=== PATIENT | female | born 1990 | race African-American/Black ===

== ENCOUNTER 2017-02-12 10:26 | Emergency (ER) | payer OTHER ==
[~2017-02-12] VITALS: Ht 165.1 cm; Wt 77.1 kg
[~2017-02-12 10:26] MED LIST: AMOXICILLIN500 MG PO; VICODIN 5-5001 EACH PO
[2017-02-12 11:00] VITALS: BP 132/82
[2017-02-12] MEDS ORDERED: Albuterol ud Inhalation HHN ONE (12:00)
[2017-02-12] MEDS ORDERED: Ipratropium 0.02% Inh Soln 2.5ml UD HHN ONE (12:00)
[2017-02-12] MEDS ORDERED: ADVAIR 250-501 EACH INH (12:45)
[2017-02-12] MEDS ORDERED: PREDNISONE20 MG ORAL (12:45)
[2017-02-12] MEDS ORDERED: PROAIR HFA8.5 GM INH (12:45)
[2017-02-12 12:52] VITALS: BP 131/81
--- NOTE | 2017-02-12 14:05 | Diagnostic Imaging Report ---
Indication: Cough Technique: One view of the chest Comparison: Findings: Lungs and pleural spaces are clear. Heart size is normal Impression: No acute process
--- NOTE | 2017-02-12 20:47 | Emergency Room Report ---
History of Present Illness General Chief Complaint: Upper Respiratory Illness Source: Patient (ADAN CARRANZA) Present Illness HPI The patient is a 26-year-old female with a history of asthma presenting for intermittent cough for the past month. She states that this does feel like asthma. She has used albuterol which temporarily helps. She denies any known sick contacts or recent travel. She denies any fever or chills. She denies any other symptoms (ADAN CARRANZA) Allergies: Coded Allergies: No Known Allergies (Unverified , 02/12/17) Patient History Past Medical History: see triage record Pertinent Family History: none Last Menstrual Period: 01/09/17 : 3 Para: 0 Reviewed Nursing Documentation: PMH: Agreed, PSxH: Agreed (ADAN CARRANZA) Nursing Documentation-PMH Hx Cardiac Problems: Yes - HEART MURMUR Hx Asthma: Yes (ADAN CARRANZA) Review of Systems All Other Systems: negative except mentioned in HPI (ADAN CARRANZA) Physical Exam Vital Signs Date Time Temp Pulse Resp B/P (MAP) Pulse Ox O2 Delivery O2 Flow Rate FiO2 02/12/17 10:36 98.1 87 18 132/82 99 Room Air 02/12/17 12:14 21 Sp02 EP Interpretation: reviewed, normal General Appearance: no apparent distress, alert, GCS 15, non-toxic Head: normocephalic, atraumatic Eyes: bilateral eye normal inspection, bilateral eye PERRL ENT: hearing grossly normal, normal pharynx, no angioedema, normal voice Neck: full range of motion, supple/symm/no masses Respiratory: chest non-tender, no accessory muscle use, speaking full sentences , wheezing - bilat Cardiovascular #1: regular rate, rhythm, no edema Musculoskeletal: back normal, gait/station normal, normal range of motion, non- tender Neurologic: alert, oriented x3, responsive, motor strength/tone normal, sensory intact, speech normal Psychiatric: judgement/insight normal, memory normal, mood/affect normal, no suicidal/homicidal ideation Skin: normal color, no rash, warm/dry, well hydrated (ADAN CARRANZA) Medical Decision Making PA Attestation Dr. Falcon is my supervising physician. Patient management was discussed with my supervising physician (ADAN CARRANZA) Diagnostic Impression: Primary Impression: Asthma Qualified Codes: J45.20 - Mild intermittent asthma, uncomplicated ER Course The patient is a 26-year-old female with a history of asthma presenting for intermittent cough for the past month Differential diagnoses considered but not limited to: Asthma exacerbation, bronchitis, pneumonia, anxiety Physical exam: Vitals within normal limits. No apparent distress HEENT exam is unremarkable Lungs: Decreased breath sounds bilaterally. Chest is nontender. No respiratory distress. No accessory muscle use. The patient was given a breathing treatment and is feeling much better. Lungs sounds have improved Patient is discharged home with a prescription for albuterol and will followup with PMD. ER precautions are given (ADAN CARRANZA) ER Course I have reviewed the PA's interpretation of Xray results and agree with findings. (Adelina Falcon M.D.) Chest X-Ray Diagnostic Results Chest X-Ray Diagnostic Results : Chest X-Ray Ordered: Yes # of Views/Limited/Complete: 1 View Indication: Other - cough EP Interpretation: Yes PA Xray: Interpretation reviewed, by supervising MD, and agrees with findings. Interpretation: no consolidation, no effusion, no pneumothorax, no acute cardiopulmonary disease Impression: No acute disease Electronically Signed by: Adan Carranza PA-C (ADAN CARRANZA) Last Vital Signs Date Time Temp Pulse Resp B/P (MAP) Pulse Ox O2 Delivery O2 Flow Rate FiO2 02/12/17 12:52 105 18 131/81 98 Room Air 02/12/17 12:31 21 02/12/17 11:00 98.1 Status: improved (ADAN CARRANZA) Disposition: HOME, SELF-CARE Condition: Improved Scripts Fluticasone/Salmeterol (Advair 250-50 Diskus) 1 Each Blst.w.dev 1 PUFF INH EVERY 12 HOURS, #1 EA Prov: ADAN CARRANZAAGerhard 02/12/17 Albuterol Sulfate* (PROAIR HFA*) 8.5 Gm Hfa.aer.ad 2 PUFFS INH Q6H, #8.5 GM 0 Refills Prov: ADAN CARRANZAAGerhard 02/12/17 Prednisone* (PREDNISONE*) 20 Mg Tablet 40 MG ORAL DAILY, #6 TAB Prov: ADAN CARRANZA 02/12/17 Referrals: NON PHYSICIAN (PCP) Patient Instructions: Asthma, Adult Additional Instructions: I discussed my findings with the patient. All questions and concerns have been answered. Treatment and medication compliance have been addressed. I advised the patient that they need to follow up with PMD in 3-5 days. Return to ED if symptoms worsen, new symptoms arise, or if needed for any reason. Patient verbalized understanding of discharge instructions. ADAN CARRANZA Feb 12, 2017 20:47 Adelina Falcon M.D. Feb 15, 2017 14:04
== END 2017-02-12 11:53 | disposition home or self-care (01) ==
LOC: EMR 11:11
DX: J45.909 Unspecified asthma, uncomplicated (principal)
CPT/HCPCS: 71045; 94640; 94664; 99284